=== PATIENT | female | born 1985 | race Caucasian/White ===

== ENCOUNTER 2025-03-29 14:52 | Observation (INO) ==
[2025-03-29 15:25] VITALS: BMI 32.0
[2025-03-29] MEDS ORDERED: ZOFRAN INJ 4 MG VIAL ONE (15:28)
[2025-03-29] MEDS ORDERED: DILAUDID INJ ONE (15:28)
[2025-03-29] MEDS: DILAUDID INJ IVP ONE ×2 (15:46→18:32)
[2025-03-29] MEDS: ZOFRAN INJ 4 MG VIAL IVP ONE (15:47)
[2025-03-29 15:49] LABS: MEAN PLATELET VOLUME 7.1 fL (7.4-11.0)
[2025-03-29 15:53] LABS: RED CELL DISTRIBUTION WIDTH 16.0 % (11.6-16.5)
[2025-03-29 15:54] LABS: INR 0.95 (0.8-1.3)
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
[2025-03-29 16:00] LABS: COR CA(FOR HYPOALB) 10.0 mg/dL (8.5-10.1); CREATININE 0.47 mg/dL (0.55-1.02); eGFR NON BLACK RACES > 60 (>60)
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
[2025-03-29] MEDS: VALIUM INJ IVP ONE (19:40)
[2025-03-29] MEDS ORDERED: TYLENOL 325 MG TAB PO PRN (20:42)
[2025-03-29] MEDS: NORCO 5/325 MG TAB PO PRN (21:30)
[2025-03-29] MEDS: DEXTROAMPHETAMINE AMPHETAMINE 30 MG PO SCH (21:30)
[2025-03-29] MEDS: KEPPRA TAB 500 MG PO SCH (21:30)
[2025-03-29] MEDS: ELIQUIS PO SCH (22:09)
[2025-03-29] MEDS: ULTRAM PO PRN (22:19)
[2025-03-30] MEDS: MORPHINE SULFATE INJ 2 MG INJ IVP PRN (02:05)
[2025-03-30 07:38] LABS: MEAN PLATELET VOLUME 7.3 fL (7.4-11.0); RED CELL DISTRIBUTION WIDTH 16.1 % (11.6-16.5)
[2025-03-30 07:45] LABS: COR CA(FOR HYPOALB) 10.1 mg/dL (8.5-10.1); CREATININE 0.49 mg/dL (0.55-1.02); eGFR NON BLACK RACES > 60 (>60)
[2025-03-30] MEDS: WELLBUTRIN XL 300 MG (DAILY) PO SCH (10:00)
[2025-03-30] MEDS: PROTONIX TAB 40 MG PO SCH (10:00)
[2025-03-30] MEDS: VALIUM PO PRN (10:00)
[2025-03-30] MEDS: ABILIFY PO SCH (10:05)
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
[2025-03-30] MEDS ORDERED: PHARMACY CONSULT XX SCH (12:00)
[2025-03-30] MEDS: MILK OF MAGNESIA PO SCH (15:53)
[2025-03-30] MEDS: NS 1,000 ML IV 1,000 ML IV SCH (17:59)
[2025-03-30] MEDS: ZANAFLEX PO PRN (18:01)
[2025-03-30] MEDS: COLACE CAP 100 MG PO SCH (21:53)
[2025-03-31 05:39] LABS: MEAN PLATELET VOLUME 7.0 fL (7.4-11.0); RED CELL DISTRIBUTION WIDTH 16.5 % (11.6-16.5)
[2025-03-31 05:59] LABS: CREATININE 0.53 mg/dL (0.55-1.02); eGFR NON BLACK RACES > 60 (>60)
[2025-03-31 06:03] LABS: COR CA(FOR HYPOALB) 9.9 mg/dL (8.5-10.1)
[2025-03-31] MEDS ORDERED: NORCO 5/325 MG TAB PO PRN (08:35)
[2025-03-31] MEDS: NORCO 10/325 TAB PO PRN (08:40)
[2025-03-31] MEDS ORDERED: NORCO 10/325 TAB PO PRN (08:42)
[2025-03-31] MEDS: ZANAFLEX PO SCH (09:09)
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
[2025-03-31] MEDS: NORCO 10/325 TAB ONE (11:36)
[2025-03-31] MEDS: ZANAFLEX ONE (11:37)
[2025-03-31] MEDS: NICOTINE PATCH TD SCH (11:46)
[2025-04-01 03:38] VITALS: TEMP 97.8
[2025-04-01 06:34] VITALS: RESP 18
[2025-04-01 08:58] VITALS: BP 100/54; PULSE 69; O2SAT 99
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
== END 2025-04-01 12:10 | disposition home health service (06) ==
LOC: SUPCPDRO → ER 14:52 → MED/SURG 14:52
PROVIDERS: ADMIT Family Medicine; ATTEND Family Medicine
DX: G89.18 Other acute postprocedural pain; M25.511 Pain in right shoulder; R26.81 Unsteadiness on feet; S82.191D Other fracture of upper end of right tibia, subsequent encounter for closed fracture with routine healing; F41.8 Other specified anxiety disorders; S42.254D Nondisplaced fracture of greater tuberosity of right humerus, subsequent encounter for fracture with routine healing; Z86.69 Personal history of other diseases of the nervous system and sense organs; D64.89 Other specified anemias; V29.888D Rider (driver) (passenger) of other motorcycle injured in other specified transport accidents, subsequent encounter; Z97.8 Presence of other specified devices; Y92.9 Unspecified place or not applicable; Z98.890 Other specified postprocedural states; R29.898 Other symptoms and signs involving the musculoskeletal system; K21.9 Gastro-esophageal reflux disease without esophagitis